=== PATIENT | male | born 1995 | race Caucasian/White ===

== ENCOUNTER 2017-01-25 05:30 | Outpatient (CLI) | payer MEDICAID ==
[~2017-01-25] VITALS: Ht 175.3 cm; Wt 68.6 kg
--- NOTE | ~2017-01-25 | HEMODYNAMI ---
PATIENT:KEVEN AMAYA MEDICAL RECORD: [id number] : [birth year] LOCATION:[facility] ADMISSION DATE: 01/25/17 Generatedon:01/25/201710:10 Patient name: KEVEN AMAYA Patient #: [id number] SSN: : Date of study: 01/25/2017 Page: Of Hemodynamic Procedure Report Patient Data Patient Demographics Procedure consent was obtained First Name: KEVEN Gender: Male Last Name: JOSE LUIS : 1995 [facility] Initial: CASSIE Age: 21 year(s) Patient #: [id number] Race: Unknown Additional ID: [id number] Contact details Address: [address] [place] [address] rd State: [place] City: [place] Zip code: [address] Past Medical History Allergies Allergen Reaction Date Comments Reported Codeine 01/25/2017 Sulfa drugs 01/25/2017 Augmentin 01/25/2017 Bactrim 01/25/2017 Other allergy 01/25/2017 ibuprofen Penicillins 01/25/2017 Admission Admission Data Admission Date: 01/25/2017 Admission Time: 5:30 Weight (lbs.): 151 Weight (kg.): 68.49 Procedure Procedure Types Cath Procedure Peripheral Cath Diagnostic Procedure Cath Peripheral Miscellaneous Procedure Description Procedure Date Procedure Date: 01/25/2017 Procedure Start Time: 8:42 Procedure Staff Name Function Saúl Bahena MD Performing Physician Didier Patten RT Scrub Tamara Hernandez RN Nurse Yuko Jackson RT Scrap Preparation Supervisor Yuko Jackson RT Monitor Procedure Data Cath Procedure Fluoroscopy Diagnostic fluoroscopy Total fluoroscopy Time: time: 14.7 min 14.7 min Diagnostic fluoroscopy Total fluoroscopy dose: 356 dose: 356 mGy mGy Contrast Material Contrast Material Type Amount (ml) Isovue 300 78 Entry Location Entry Primary Successful Side Size Upsize Upsize Entry Closure Succes sful Closure Location (Fr) 1 (Fr) 2 (Fr) Remarks Device Remarks Jugular Right 5 Fr vein Diagnostic catheters Device Type Used For End Catheter Placement Merit Impress Persaud 5FR. 100CM catheter Procedure Medications Medication Administration Route Dosage Heparin Flush Bag added to field 3 bags (1000units/500ml NS) Oxygen NC 3 l/min Lidocaine 1% added to field 20 Versed I.V. 1 mg Fentanyl I.V. 50 mcg Versed I.V. 1 mg Fentanyl I.V. 50 mcg Versed I.V. 1 mg Fentanyl I.V. 50 mcg Nitroglycerin IC/IA 200 mcg Versed I.V. 1 mg Fentanyl I.V. 50 mcg unlisted medication I.V. 30 Hemodynamics Rest Heart Rate: 101 (bpm) Snapshots Pre Cath Intra NCS Post Cath Vital Signs Time Heart Resp SPO2 etCO2 NIBP (mmHg) Rhythm Pain Sedation Rate (ipm) (%) (mmHg) Status Level (bpm) 8:22:27 104 100 34.2 138/85(103) NSR 0 (11) 10(A) , No pain 8:26:35 91 13 100 36.4 139/87(106) NSR 0 (11) 10(A) , No pain 8:30:45 107 11 100 40.2 132/85(99) NSR 0 (11) 10(A) , No pain 8:35:01 96 13 100 41.7 128/81(100) NSR 0 (11) 10(A) , No pain 8:39:07 93 13 100 40.2 133/87(101) NSR 0 (11) 10(A) , No pain 8:43:17 105 11 100 41.8 135/79(102) NSR 0 (11) 10(A) , No pain 8:47:29 103 10 98 38 131/74(92) NSR 0 (11) 10(A) , No pain 8:51:40 96 0 97 39.5 120/73(91) NSR 0 (11) 10(A) , No pain 8:55:50 103 15 95 48.6 132/65(89) NSR 0 (11) 10(A) , No pain 9:00:00 105 6 98 47.1 125/76(97) NSR 0 (11) 10(A) , No pain 9:04:08 123 16 97 46.3 126/77(100) NSR 0 (11) 10(A) , No pain 9:08:14 121 14 99 44 126/84(99) NSR 0 (11) 10(A) , No pain 9:12:30 106 8 98 45.6 131/51(84) NSR 0 (11) 10(A) , No pain 9:16:42 101 9 94 49.4 103/59(93) NSR 0 (11) 10(A) , No pain 9:20:48 94 8 94 50.9 108/55(100) NSR 0 (11) 10(A) , No pain 9:24:55 97 7 92 50.1 111/58(83) NSR 0 (11) 10(A) , No pain 9:29:03 93 8 95 48.6 127/62(92) NSR 0 (11) 10(A) , No pain 9:33:11 114 11 100 46.3 120/73(88) NSR 0 (11) 10(A) , No pain 9:37:17 105 11 100 45.6 122/74(97) NSR 0 (11) 10(A) , No pain 9:41:25 89 8 98 44.8 117/71(88) NSR 0 (11) 10(A) , No pain 9:45:28 98 10 100 41.8 129/81(97) NSR 0 (11) 10(A) , No pain 9:49:38 100 8 100 41.8 126/76(103) NSR 0 (11) 10(A) , No pain 9:53:44 93 3 100 42.5 123/78(91) NSR 0 (11) 10(A) , No pain 9:57:48 96 11 98 0 118/82(94) NSR 0 (11) 10(A) , No pain 10:01:50 95 11 99 0 124/84(104) NSR 0 (11) 10(A) , No pain 10:05:49 0 No Cuff NSR 0 (11) 10(A) , No pain Medications Time Medication Route Dose Verified Delivered Reason Notes Effec tiveness by by 8:23:51 Heparin Flush added 3 Tamara Saúl used for Bag to bags David joy (1000units/500ml field STONE ORTIZ) 8:24:09 Oxygen NC 3 Tamara Tamara used for l/min David David delivery room clerk RN 8:24:25 Lidocaine 1% added 20ml Tamarasteph watters local to vial David Bahena anesthetic RN 8:41:08 Versed I.V. 1 mg Saúl Mcdonald for Josef David RN sedation 8:41:19 Fentanyl I.V. 50 Saúl Mcdonald for mcg Josefjigna Cervantesr RN sedation 8:44:46 Versed I.V. 1 mg Saúl Mcdonald for Josef David RN sedation 8:44:53 Fentanyl I.V. 50 Saúl Mcdonald for mcg Josef David RN sedation 8:50:42 Versed I.V. 1 mg Saúl Mcdonald for Josef David RN sedation 8:50:49 Fentanyl I.V. 50 Saúl Mcdonald for mcg Josef David RN sedation 9:08:33 Nitroglycerin IV 200 Saúl Hays IC/IA stefani Bahena MD, MD 9:11:13 Versed I.V. 1 mg Saúl Mcdonald for Josef David RN sedation 9:11:23 Fentanyl I.V. 50 Saúl Mcdonald for mcg Josef David RN sedation 9:34:20 SOTRADECOL I.V. 30 MG Saúl Bahena MD, MD Procedure Log Time Note 8:13:29 Patient Weight : 151 lbs 8:14:08 Time tracking: Regular hours 8:14:43 Plan of Care:Hemodynamics will remain stable., Cardiac rhythm will remain stable., Comfort level will be maintained., Respiratory function will remain adequate., Patient/ family verbilizes understanding of procedure., Procedure tolerated without complication., Recovers from procedure without complications.. 8:14:50 Patient received from Outpatients to IR Alert and oriented. Tansferred to table in Supine position. 8:14:52 Correct patient and procedure confirmed by team. 8:14:54 Signed procedure consent form obtained from patient. 8:14:57 - 8:15:03 H&P Date Dictated: 01/25/2017 Within 30 days and on chart.. 8:15:05 Pre-procedure instructions explained to patient. 8:15:06 Pre-op teaching completed and patient verbalized understanding. 8:15:08 Family in waiting room. 8:15:10 Patient NPO since Midnight. 8:15:28 Patient allergic to Codeine 8:15:37 Patient allergic to Sulfa drugs 8:17:23 Patient allergic to Augmentin 8:17:30 Patient allergic to Bactrim 8:18:37 Patient allergic to Other allergyibuprofen 8:18:48 Is the patient allergic to Iodine/contrast media? No. 8:18:51 Is patient on blood thinner?No 8:19:29 Patient diabetic? No. 8:19:34 - 8:19:36 ----Pre-sedation anethsthesia assessment.---- 8:19:40 Previous problem with sedation/anesthesia? No ? 8:19:43 Snore? No 8:19:46 Sleep apnea? No 8:19:49 Deviated septum? No 8:19:51 Opens mouth fully? Yes 8:19:53 Sticks out tongue? Yes 8:19:57 Airway obstruction? No ? 8:20:01 Dentures? No ? 8:20:03 - 8:20:40 Patient pain scale 8/10 testicle. 8:21:17 IV patent on arrival in right hand with 0.9% NaCl at [facility]. 8:21:32 Right neck area was prepped with chlora-prep and draped in sterile fashion 8:21:37 Alarms reviewed by Gregory Deleon 8:21:38 Sharps counted by scrub and verified 8:21:54 - 8:22:02 ECG and BP/O2 sat monitors applied to patient. 8:22:07 Vital chart was started 8:22:44 Baseline sample Acquired. 8:23:16 - 8:23:51 Heparin Flush Bag (1000units/500ml NS) 3 bags added to field was administered by Saúl Bahena MD; used for procedure; 8:24:09 Oxygen 3 l/min NC was administered by Tamara Hernandez RN; used for procedure; 8:24:25 Lidocaine 1% 20ml vial added to field was administered by Saúl davis MD; for local anesthetic; 8:24:27 - 8:24:47 Use device set IR Diagnostic 8:24:49 Sterile Angiographic Pack opened to sterile field. 8:24:50 Bag Decanter opened to sterile field. 8:24:50 Acist Manifold opened to sterile field. 8:24:52 Acist Hand Control opened to sterile field. 8:24:53 Acist Syringe opened to sterile field. 8:25:26 Daniel GARNERSON 145cm guide wire opened to sterile field. 8:25:27 Micropuncture VSI 4FR kit opened to sterile field. 8:25:28 Terumo 5Fr Mulhall Sheath opened to sterile field. 8:25:29 TUBING, CONTRAST INJCTN HI PRES opened to sterile field. 8:25:30 TUBING, CONTRAST INJCTN HI PRES opened to sterile field. 8:39:18 Physician arrived 8:40:42 --------ALL STOP TIME OUT------ 8:40:42 Final Timeout: patient, procedure, and site verified with staff and physician. All members of the team are in agreement. 8:41:08 Versed 1 mg I.V. was administered by Tamara Hernandez RN; for sedation; 8:41:19 Fentanyl 50 mcg I.V. was administered by Tamara Hernandez RN; for sedation ; 8:41:24 Patient allergic to Penicillins 8:41:46 Right neck site verified by team. 8:41:53 Sedation plan: IV Moderate Sedation Versed, Fentanyl 8:42:02 Procedure started. 8:42:02 Full Disclosure recording started 8:42:11 Local anesthetic to right IJ vein with Lidocaine 1% by Saúl Bahena MD.INITIAL ACCESS ONLY 8:44:07 A Margarette Persaud 5FR. 100CM catheter was advanced over the wir e and used for . 8:44:46 Versed 1 mg I.V. was administered by Tamara Hernandez RN; for sedation; 8:44:53 Fentanyl 50 mcg I.V. was administered by Tamara Hernandez RN; for sedation ; 8:45:56 Venous access obtained using ultrasound guidance. 8:46:12 A 5 Fr sheath was inserted into the Right Jugular vein 8:50:42 Versed 1 mg I.V. was administered by Tamara Hernandez RN; for sedation; 8:50:49 Fentanyl 50 mcg I.V. was administered by Tamara Hernandez RN; for sedation ; 8:51:11 Cook ADAM 1 6FR. Guide sheath opened to sterile field. 8:52:23 Terumo TORQUE DEVICE PLASTIC .038 opened to sterile field. 8:52:24 Terumo ANGLE 180L glide wire opened to sterile field. 8:58:10 Cook MENDIOLA 260 guide wire opened to sterile field. 9:08:33 Nitroglycerin IC/IA 200 mcg IV was administered by Saúl Bahena MD; ; 9:11:13 Versed 1 mg I.V. was administered by Tamara Hernandez RN; for sedation; 9:11:23 Fentanyl 50 mcg I.V. was administered by Tamara Hernandez RN; for sedation ; 9:11:51 Monrovia Sci Interlock 6 x 20 Coil opened to sterile field. 9:14:07 Cook TORNADO EMBOLIZATION 6MM coil opened to sterile field. 9:15:44 Cook TORNADO EMBOLIZATION 6MM coil opened to sterile field. 9:19:25 Monrovia Sci Interlock 8 x 20 coil opened to sterile field. 9:19:46 Cook BENTSON 145cm guide wire opened to sterile field. 9:25:32 Monrovia Sci Interlock 8 x 20 coil opened to sterile field. 9:28:44 STOPCOCK 3-WAY LARGE BORE opened to sterile field. 9:34:20 SOTRADECOL 30 MG I.V. was administered by Saúl Bahena MD; ; 9:35:24 Monrovia Sci INTERLOCK 10 X 20 coil opened to sterile field. 9:44:10 Monrovia Sci Interlock 6 x 10 Coil opened to sterile field. 9:44:38 Procedure ended.(Physican Out) 9:44:55 Fluoroscopy time 14.70 minutes. 9:45:01 Fluoroscopy dose: 356 mGy 9:45:01 Flurop Dose total: 356 9:45:13 Contrast amount:Isovue 300 78ml. 9:45:15 Sharps counted by scrub and verified by R.N. 10:05:28 Vital chart was stopped 10:05:36 Vital chart was started 10:05:42 Vital chart was stopped 10:08:51 Procedure and supply charges have been captured, reviewed, submitted an d are correct. 10:08:57 Report given to Outpatients. 10:09:03 Patient transfered to Outpatients with Stretcher. 10:09:04 End room use (Document Last) Device Usage Item Name Manufacture Quantity Catalog Hospital Part Current Minima l Lot# / Number Charge Number Stock Stock Serial# Code Sterile Cardinal 1 [id number] 790396 5 Angiographic Health Pack Bag Decanter Microtek 1 [id number] 97440 365409 5 Medical Inc. Acist Acist 1 43352 819115 411288 422266 5 Manifold Medical Systems Inc Acist Hand Acist 1 60431 062337 864791 276598 5 Control Medical Systems Inc Acist Syringe Acist 1 95283 413149 661099 043936 20 Medical Systems Inc Cook Jooobz!SON Cook Medical 2 V06890 252382 096099 5 [id number] 145cm guide [id number] wire Micropuncture VSI VASCULAR 1 7266V 854030 888657 5 VSI 4FR kit SOLUTIONS Terumo 5Fr Terumo 1 [id number] 292617 563472 656630 40 Mulhall Sheath TUBING, Merit 2 [id number] 806744 203585 708529 5 CONTRAST Medical INJCTN HI PRES Merit Impress Merit 1 [id number] 998342 834773 5 Persaud Medical 5FR. 100CM catheter Cook ADAM 1 Cook Medical 1 [id number] 523582 449823 5 [id number] 6FR. Guide sheath Terumo TORQUE [place]via 1 TD01 164003 077207 098418 5 DEVICE Scientific PLASTIC .038 Terumo ANGLE Terumo 1 [id number] 452981 329011 264839 5 180L glide wire Cook MENDIOLA Cook Medical 1 K72133 669851 572742 5 9128136 260 guide wire Monrovia Sci Monrovia 2 [id number] 693220 924143 474555 5 [id number] Interlock 6 x Scientific 20 Coil Cook TORNADO Cook Medical 2 O64782 329602 035491 5 [id number] EMBOLIZATION [id number] 6MM coil Monrovia Sci Monrovia 2 [id number] 417527 682638 492487 5 [id number] Interlock 8 x Scientific [id number] 20 coil STOPCOCK Cook Medical 1 I77991 715251 6914 123219 5 [id number] 3-WAY LARGE BORE Monrovia Sci Monrovia 1 [id number] 769963 767106 5 [id number] INTERLOCK 10 Scientific X 20 coil Signature Audit [place] Stage Time Signature Unsigned Intra-Procedure 01/25/2017 Yuko Jackson 10:09:57 AM RT(R) Signatures Monitor : Yuko Jackson RT Signature : Date : Time : [facility] [address] [place] [address]
[2017-01-25] MEDS ORDERED: ULTRAM50 MG PO (06:36)
[2017-01-25 06:37] VITALS: BP 139/82; Ht 175.3 cm; Wt 68.6 kg
[2017-01-25 07:05] LABS: BASOPHILS 0.3 % (0-2); EOSINOPHILS 0.8 % (0-7); HEMATOCRIT 41.2 % (42.0-54.0); HEMOGLOBIN 14.4 g/dL (13.5-17.5); IMMATURE GRANULOCYTES 0.4 % (0-5); LYMPHOCYTES 36.7 % (15-50); MCV 82.9 fL (80.0-100.0); MEAN PLATELET VOLUME 10.1 fL (7.4-10.4); MONOCYTES 6.4 % (2-11); NEUTROPHILS 55.4 % (40-80); PLATELET COUNT 200 10x3/uL (130-400); RBC 4.97 10x6/uL (4.20-6.10); RDW 12.1 % (11.5-14.5); WBC 7.1 10x3/uL (4.8-10.8)
[2017-01-25 07:16] LABS: APTT 31.5 SECONDS (22.8-39.4); CALC OSMOLALITY 279 mosm/kg (275-300); CARBON DIOXIDE 30.1 mmol/L (21.0-32.0); CHLORIDE - SERUM 104 mmol/L (98-107); CREATININE - SERUM 0.7 mg/dL (0.6-1.3); GLUCOSE 83 mg/dL (74-106); INR 1.12 (0.85-1.17); POTASSIUM - SERUM 4.4 mmol/L (3.5-5.1); PROTIME 14.3 SECONDS (11.6-15.0); SODIUM 141 mmol/L (136-145); UREA NITROGEN 12 mg/dL (7-18); eGFR NON AFRICAN AMERICAN > 90 mL/min (90-120)
--- NOTE | 2017-01-25 10:21 | NUR ---
1022 SEE POST PROCEDURE CHECK LIST FOR VITAL SIGN TRENDS.
--- NOTE | 2017-01-25 10:36 | NUR ---
1030 [facility] AT 30 DEGREES, FAMILY AT BEDSIDE.
--- NOTE | 2017-01-25 12:59 | NUR ---
[address] ESQUEDA 1250 M YIN RN ROUNDS.
== END 2017-01-25 13:35 | disposition home or self-care (01) ==
LOC: D.OPS 05:30 → D.RAD 08:00 → D.OPS 08:00
PROVIDERS: Radiology Diagnostic Radiology
DX: I86.1 Scrotal varices (principal); Z01.812 Encounter for preprocedural laboratory examination

== ENCOUNTER 2019-11-17 16:17 | Emergency (ER) | payer MEDICARE ==
[~2019-11-17] VITALS: Ht 175.3 cm; Wt 102.3 kg
[~2019-11-17 16:17] MED LIST: ULTRAM50 MG PO
[2019-11-17 16:25] VITALS: Ht 175.3 cm; Wt 102.3 kg
[2019-11-17 17:04] LABS: BASOPHILS 0.2 % (0-2); CALC OSMOLALITY 279 mosm/kg (275-300); CALCIUM 9.9 mg/dL (8.5-10.1); CARBON DIOXIDE 26.8 mmol/L (21.0-32.0); CHLORIDE - SERUM 105 mmol/L (98-107); CREATININE - SERUM 0.9 mg/dL (0.6-1.3); EOSINOPHILS 0.4 % (0-7); GLUCOSE 108 mg/dL (74-106); HEMATOCRIT 45.8 % (42.0-54.0); HEMOGLOBIN 15.5 g/dL (13.5-17.5); IMMATURE GRANULOCYTES 0.5 % (0-5); LYMPHOCYTES 22.8 % (15-50); MCH 28.3 pg (26.0-34.0); MCHC 33.8 g/dL (31.0-37.0); MCV 83.6 fL (80.0-100.0); MEAN PLATELET VOLUME 9.8 fL (7.4-10.4); MONOCYTES 8.5 % (2-11); NEUTROPHILS 67.6 % (40-80); PLATELET COUNT 205 10x3/uL (130-400); POTASSIUM - SERUM 3.8 mmol/L (3.5-5.1); RBC 5.48 10x6/uL (4.20-6.10); RDW 13.6 % (11.5-14.5); SODIUM 140 mmol/L (136-145); UREA NITROGEN 12 mg/dL (7-18); WBC 11.3 10x3/uL (4.8-10.8); eGFR NON AFRICAN AMERICAN > 90 mL/min (90-120)
[2019-11-17 17:12] LABS: ALBUMIN 4.2 g/dL (3.4-5.0); ALKALINE PHOSPHATASE 73 U/L (30-120); ALT (SGPT) 38 U/L (10-68); BILIRUBIN - TOTAL 0.37 mg/dL (0.2-1.3)
[2019-11-17 17:41] LABS: UDS - AMPHET NEGATIVE QUAL (NEGATIVE); UDS - BARB NEGATIVE QUAL (NEGATIVE); UDS - BENZO NEGATIVE QUAL (NEGATIVE); UDS - COCAINE NEGATIVE QUAL (NEGATIVE); UDS - OPIATE NEGATIVE QUAL (NEGATIVE); UDS - PCP NEGATIVE QUAL (NEGATIVE); UDS - THC NEGATIVE QUAL (NEGATIVE)
[2019-11-17 17:59] LABS: BILIRUBIN NEGATIVE (NEGATIVE); KETONE NEGATIVE (NEGATIVE); NITRITE NEGATIVE (NEGATIVE); UROBILINOGEN NORMAL (NORMAL)
--- NOTE | 2019-11-17 20:20 | NUR ---
patient in er with suicidial ideations. he claims that he hears voices and at times they tell him to harm himself, he has no plan. he can not commit to a safety plan at this time. 1-800 number given for future refernce. he will be placed on one to one.
[2019-11-18 01:02] VITALS: BP 137/81
== END 2019-11-18 06:18 ==
LOC: D.ER 16:17
DX: R45.851 Suicidal ideations (principal); R44.0 Auditory hallucinations; R45.4 Irritability and anger; F22 Delusional disorders